=== PATIENT | male | born 1985 | race Caucasian/White ===

== ENCOUNTER 2020-02-24 17:45 | Observation (INO) ==
[2020-02-24 18:20] LABS: Mean Corpuscular HGB Conc 32.5 g/dL (31.6-35.5); Mean Corpuscular Hemoglobin 30.5 pg (28.0-33.3)
[2020-02-24 18:22] LABS: Hematocrit 45.9 % (37.5-50.1); Hemoglobin 14.9 g/dL (12.9-16.9); Immature Platelets 3.8 % (1.1-6.1); Mean Corpuscular Volume 94.1 fL (83.0-100.0); Red Blood Count 4.88 M/mcL (4.19-5.50); Red Cell Distribution Width 12.6 % (11.5-14.5); White Blood Count 5.4 K/mcL (4.3-11.1)
[2020-02-24 18:39] LABS: BUN/Creatinine Ratio 9 (6-26); Blood Urea Nitrogen 10 mg/dL (6-20); Calcium 9.3 mg/dL (8.6-10.3); Carbon Dioxide 28 mEq/L (23-29); Chloride 103 mEq/L (98-107); Glucose 119 mg/dL (70-105); Osmolality,Calculated 286 (280-300); Potassium 3.9 mEq/L (3.5-5.1); Sodium 138 mEq/L (136-145); eGFR For African Americans > 60 (> 60); eGFR For Non-African Americans > 60 (> 60)
[2020-02-24] MEDS: 0.9 % Sodium Chloride 1,000 ML IVC SCH ×2 (19:02→20:10)
[2020-02-24 20:16] LABS: Bilirubin,Urine Negative (Negative); Blood,Urine Negative (Negative); Clarity,Urine Clear (Clear); Color,Urine Light-Yellow (Yellow); Glucose,Urine (UA) Normal (Normal); Ketones,Urine Negative (Negative); Leukocyte Esterase,Urine Negative (Negative); Mucus,Urine Few per lpf (None-Few); Nitrite,Urine Negative (Negative); PH,Urine 6.5 pH Units (5.0-8.0); Protein,Urine 30 mg/dL (Neg-Trace); RBC,Urine 0-3 per hpf (0-3); Specific Gravity,Urine 1.016 (1.010-1.025); Squamous Epithelial Cell,Urine Few per hpf (None-Few); Urobilinogen,Urine Normal (Normal); WBC,Urine 0-3 per hpf (0-3)
[2020-02-25] MEDS ORDERED: *HR* Enoxaparin 150 MG/ML SYRINGE SQ STA (03:18)
[2020-02-25] MEDS: 0.9 % Sodium Chloride 1,000 ML IVC SCH (03:58)
[2020-02-25] MEDS ORDERED: 0.9 % Sodium Chloride 1,000 ML IVC ONE (04:00)
[2020-02-25] MEDS ORDERED: Naloxone 0.4 MG/ML INJ IVP PRN (04:52)
[2020-02-25] MEDS ORDERED: Ondansetron 4 MG/2 ML VIAL IVP PRN (04:52)
[2020-02-25] MEDS ORDERED: Ringers Solution, Lactated 1,000 ML IVC SCH (05:00)
[2020-02-25] MEDS ORDERED: Acetaminophen 325 MG TABLET PO PRN (05:35)
[2020-02-25] MEDS: Benzonatate 100 MG CAPSULE PO PRN ×2 (05:51→14:51)
[2020-02-25 08:34] LABS: Basophils % 0.3 %; Eosinophils # 0.1 K/mcL (0.0-0.6); Eosinophils % 1.7 %; Hematocrit 41.6 % (37.5-50.1); Hemoglobin 13.4 g/dL (12.9-16.9); Immature Granulocytes % 0.3 % (0-4); Lymphocytes # 2.7 K/mcL (0.6-4.6); Lymphocytes % 35.4 %; Mean Corpuscular HGB Conc 32.2 g/dL (31.6-35.5); Mean Corpuscular Hemoglobin 30.2 pg (28.0-33.3); Mean Corpuscular Volume 93.9 fL (83.0-100.0); Monocytes % 12.8 %; Neutrophils # 3.7 K/mcL (1.6-8.9); Platelet Count 118 K/mcL (140-400); Red Blood Count 4.43 M/mcL (4.19-5.50); Red Cell Distribution Width 12.9 % (11.5-14.5); Segmented Neutrophils % 49.5 %; White Blood Count 7.6 K/mcL (4.3-11.1)
[2020-02-25 08:43] LABS: Fibrinogen 277 mg/dL (169-393); INR 1.3; Prothrombin Time 14.5 Seconds (9.4-12.1)
[2020-02-25 08:44] LABS: D-Dimer 669 ng/mLFEU (0-500)
[2020-02-25 09:09] LABS: Alanine Aminotransferase 53 Units/L (7-52); Albumin 3.7 g/dL (3.5-5.7); Albumin/Globulin Ratio 1.3 (1.1-2.2); Alkaline Phosphatase 58 Units/L (34-104); Aspartate Amino Transferase 69 Units/L (13-39); BUN/Creatinine Ratio 9 (6-26); Bilirubin,Total 1.6 mg/dL (0.3-1.0); Blood Urea Nitrogen 8 mg/dL (6-20); Calcium 8.4 mg/dL (8.6-10.3); Carbon Dioxide 24 mEq/L (23-29); Chloride 105 mEq/L (98-107); Globulin 2.8 g/dL (2.4-3.5); Glucose 104 mg/dL (70-105); Lactate Dehydrogenase 210 Units/L (140-271); Magnesium 1.6 mg/dL (1.6-2.6); Osmolality,Calculated 283 (280-300); Potassium 3.5 mEq/L (3.5-5.1); Sodium 137 mEq/L (136-145); Total Protein 6.5 g/dL (6.4-8.9); eGFR For African Americans > 60 (> 60); eGFR For Non-African Americans > 60 (> 60)
[2020-02-25] MEDS: GuaiFENesin/Dextromethorphan TABLET PO SCH ×2 (09:21→19:46)
[2020-02-25 11:51] LABS: C-Reactive Protein 44 mg/L (Less than 10)
[2020-02-25] MEDS: dexAMETHasone 4 MG TABLET PO SCH (18:28)
[2020-02-25] MEDS: *HR* Enoxaparin 150 MG/ML SYRINGE SQ SCH (19:46)
[2020-02-25] MEDS ORDERED: traZODone 50 MG TABLET PO SCH (21:00)
[2020-02-26 02:15] VITALS: BP 113/72
[2020-02-26 06:04] LABS: Lactate Dehydrogenase 210 Units/L (140-271)
[2020-02-26 06:10] LABS: D-Dimer 405 ng/mLFEU (0-500); Fibrinogen 430 mg/dL (169-393)
[2020-02-26] MEDS: *HR* Enoxaparin 150 MG/ML SYRINGE SQ SCH (08:10)
[2020-02-26] MEDS: dexAMETHasone 4 MG TABLET PO SCH (08:10)
[2020-02-26] MEDS: GuaiFENesin/Dextromethorphan TABLET PO SCH (08:10)
[2020-02-26 08:14] LABS: Mean Platelet Volume 11.4 fL (9.4-12.4)
[2020-02-26 08:16] LABS: Hematocrit 45.1 % (37.5-50.1); Hemoglobin 14.8 g/dL (12.9-16.9); Immature Platelets 5.4 % (1.1-6.1); Mean Corpuscular HGB Conc 32.8 g/dL (31.6-35.5); Mean Corpuscular Hemoglobin 30.5 pg (28.0-33.3); Mean Corpuscular Volume 92.8 fL (83.0-100.0); Red Blood Count 4.86 M/mcL (4.19-5.50); White Blood Count 7.5 K/mcL (4.3-11.1)
[2020-02-26 10:41] LABS: Alanine Aminotransferase 53 Units/L (7-52); Albumin/Globulin Ratio 1.1 (1.1-2.2); Alkaline Phosphatase 66 Units/L (34-104); Aspartate Amino Transferase 60 Units/L (13-39); BUN/Creatinine Ratio 10 (6-26); Bilirubin,Direct 0.5 mg/dL (0.0-0.2); Bilirubin,Indirect 1.1 mg/dL (0.0-1.0); Bilirubin,Total 1.6 mg/dL (0.3-1.0); Blood Urea Nitrogen 9 mg/dL (6-20); C-Reactive Protein 73 mg/L (Less than 10); Carbon Dioxide 24 mEq/L (23-29); Chloride 101 mEq/L (98-107); Globulin 3.5 g/dL (2.4-3.5); Glucose 133 mg/dL (70-105); Osmolality,Calculated 283 (280-300); Potassium 4.5 mEq/L (3.5-5.1); Sodium 136 mEq/L (136-145); Total Protein 7.5 g/dL (6.4-8.9); eGFR For African Americans > 60 (> 60); eGFR For Non-African Americans > 60 (> 60)
== END 2020-02-26 11:54 | disposition home or self-care (01) ==
LOC: EMEROOARM 17:45 → 2NENU 17:45 → SUATTDRO 02-25 04:28 → 2NENU 02-25 04:47
PROVIDERS: ADMIT Internal Medicine; ATTEND Internal Medicine

== ENCOUNTER 2020-03-01 03:18 | Inpatient (IN) ==
[2020-03-01 03:45] LABS: Basophils % 0.2 %; Hemoglobin 14.2 g/dL (12.9-16.9); Immature Granulocytes % 0.8 % (0-4); Lymphocytes # 2.2 K/mcL (0.6-4.6); Lymphocytes % 26.2 %; Mean Corpuscular Hemoglobin 30.3 pg (28.0-33.3); Mean Corpuscular Volume 91.9 fL (83.0-100.0); Mean Platelet Volume 10.7 fL (9.4-12.4); Monocytes # 1.1 K/mcL (0.0-1.3); Monocytes % 13.1 %; Platelet Count 146 K/mcL (140-400); Red Blood Count 4.68 M/mcL (4.19-5.50); Red Cell Distribution Width 12.9 % (11.5-14.5); Segmented Neutrophils % 59.7 %; White Blood Count 8.3 K/mcL (4.3-11.1)
[2020-03-01 04:07] LABS: Alanine Aminotransferase 63 Units/L (7-52); Albumin 3.7 g/dL (3.5-5.7); Albumin/Globulin Ratio 1.1 (1.1-2.2); Alkaline Phosphatase 56 Units/L (34-104); Aspartate Amino Transferase 85 Units/L (13-39); BUN/Creatinine Ratio 11 (6-26); Bilirubin,Total 1.3 mg/dL (0.3-1.0); Blood Urea Nitrogen 12 mg/dL (6-20); Calcium 8.2 mg/dL (8.6-10.3); Carbon Dioxide 26 mEq/L (23-29); Chloride 98 mEq/L (98-107); Globulin 3.5 g/dL (2.4-3.5); Glucose 112 mg/dL (70-105); Osmolality,Calculated 279 (280-300); Potassium 3.6 mEq/L (3.5-5.1); Sodium 134 mEq/L (136-145); Total Protein 7.2 g/dL (6.4-8.9); eGFR For African Americans > 60 (> 60); eGFR For Non-African Americans > 60 (> 60)
[2020-03-01 04:20] LABS: Platelet Estimate Normal (Normal); Reactive Lymphocytes Present (Not Present)
[2020-03-01] MEDS ORDERED: Dexamethasone 4 MG/ML VIAL PO ONE (04:22)
[2020-03-01] MEDS ORDERED: 0.9 % Sodium Chloride 1,000 ML IVC ONE (04:23)
[2020-03-01] MEDS ORDERED: Ipratropium 1 PUFF INHALER IH ONE (04:23)
[2020-03-01 04:41] LABS: Troponin I < 0.03 ng/mL (< 0.04)
[2020-03-01] MEDS ORDERED: Naloxone 0.4 MG/ML INJ IVP PRN (07:26)
[2020-03-01] MEDS ORDERED: Ondansetron 4 MG/2 ML VIAL IVP PRN (07:26)
[2020-03-01] MEDS ORDERED: Acetaminophen 325 MG TABLET PO PRN (07:32)
[2020-03-01 08:18] LABS: Lactate Dehydrogenase 553 Units/L (140-271)
[2020-03-01 08:35] LABS: Ferritin 1069 ng/mL (20-250)
[2020-03-01] MEDS ORDERED: levoFLOXacin 750 MG/150 ML 750 MG/150 ML BAG IVPB SCH (09:00)
[2020-03-01 09:34] LABS: Fibrinogen 598 mg/dL (169-393)
[2020-03-01 09:53] LABS: D-Dimer 463 ng/mLFEU (0-500)
[2020-03-01 11:36] LABS: ABG Base Excess 1 mEq/L (-2 to 3); ABG HCO3 24 mEq/L (21-27); ABG Oxygen Saturation 95 % (95-98); ABG PCO2 33 mmHg (35-45); ABG PH 7.46 pH Units (7.32-7.45); ABG PO2 71 mmHg (85-104); ABG TCO2 25 mEq/L (20-26)
[2020-03-01] MEDS ORDERED: Dexamethasone 4 MG/ML VIAL IVP SCH (21:00)
[2020-03-01 21:22] LABS: Bilirubin,Urine Negative (Negative); Blood,Urine Negative (Negative); Clarity,Urine Clear (Clear); Color,Urine Yellow (Yellow); Glucose,Urine (UA) Normal (Normal); Ketones,Urine Negative (Negative); Leukocyte Esterase,Urine Negative (Negative); Nitrite,Urine Negative (Negative); PH,Urine 6.5 pH Units (5.0-8.0); Protein,Urine Trace mg/dL (Neg-Trace); Specific Gravity,Urine 1.029 (1.010-1.025); Urobilinogen,Urine >=8.0 mg/dL (Normal)
[2020-03-02 04:51] LABS: Basophils % 0.2 %; Hematocrit 43.3 % (37.5-50.1); Hemoglobin 14.5 g/dL (12.9-16.9); INR 1.2; Immature Granulocytes % 0.8 % (0-4); Lymphocytes # 1.7 K/mcL (0.6-4.6); Lymphocytes % 16.5 %; Mean Corpuscular HGB Conc 33.5 g/dL (31.6-35.5); Mean Corpuscular Hemoglobin 31.4 pg (28.0-33.3); Mean Corpuscular Volume 93.7 fL (83.0-100.0); Monocytes # 1.2 K/mcL (0.0-1.3); Monocytes % 11.2 %; Neutrophils # 7.4 K/mcL (1.6-8.9); Platelet Count 142 K/mcL (140-400); Prothrombin Time 13.4 Seconds (9.4-12.1); Red Blood Count 4.62 M/mcL (4.19-5.50); Red Cell Distribution Width 13.2 % (11.5-14.5); Segmented Neutrophils % 71.3 %; White Blood Count 10.4 K/mcL (4.3-11.1)
[2020-03-02 05:08] LABS: Alanine Aminotransferase 57 Units/L (7-52); Albumin 3.5 g/dL (3.5-5.7); Alkaline Phosphatase 50 Units/L (34-104); Aspartate Amino Transferase 59 Units/L (13-39); BUN/Creatinine Ratio 18 (6-26); Bilirubin,Total 0.8 mg/dL (0.3-1.0); Blood Urea Nitrogen 14 mg/dL (6-20); Calcium 8.6 mg/dL (8.6-10.3); Carbon Dioxide 25 mEq/L (23-29); Chloride 102 mEq/L (98-107); Globulin 3.6 g/dL (2.4-3.5); Glucose 144 mg/dL (70-105); Magnesium 2.3 mg/dL (1.6-2.6); Osmolality,Calculated 287 (280-300); Phosphorous 4.8 mg/dL (2.7-4.5); Potassium 4.1 mEq/L (3.5-5.1); Sodium 137 mEq/L (136-145); Total Protein 7.1 g/dL (6.4-8.9); eGFR For African Americans > 60 (> 60); eGFR For Non-African Americans > 60 (> 60)
[2020-03-02] MEDS: *HR* Enoxaparin 40 MG/0.4 ML SYRINGE SQ SCH (06:22)
[2020-03-02] MEDS: Azithromycin 500 MG in 0.9 % Sodium Chloride 250 ML IVPB SCH (09:00)
[2020-03-02] MEDS: cefTRIAXone 2,000 MG in Water for inj. (sterile) 20 ML IVP SCH (09:00)
[2020-03-02] MEDS: Dexamethasone 4 MG/ML VIAL IVP SCH (09:01)
[2020-03-02] MEDS ORDERED: 0.9 % Sodium Chloride 250 ML IVC SCH (10:45)
[2020-03-02] MEDS ORDERED: 0.9 % Sodium Chloride 250 ML ONE (13:07)
[2020-03-02] MEDS ORDERED: Furosemide 20 MG/2 ML VIAL IVP ONE (15:00)
[2020-03-02] MEDS ORDERED: Benzonatate 100 MG CAPSULE PO PRN (18:13)
[2020-03-02] MEDS ORDERED: Melatonin 3 MG TABLET PO ONE (23:45)
[2020-03-03] MEDS ORDERED: Water for inj. (sterile) 20 ML IV ONE (06:58)
[2020-03-03] MEDS: Azithromycin 500 MG in 0.9 % Sodium Chloride 250 ML IVPB SCH (07:03)
[2020-03-03] MEDS: *HR* Enoxaparin 40 MG/0.4 ML SYRINGE SQ SCH (07:06)
[2020-03-03] MEDS: cefTRIAXone 2,000 MG in Water for inj. (sterile) 20 ML IVP SCH (07:07)
[2020-03-03] MEDS: Dexamethasone 4 MG/ML VIAL IVP SCH (07:08)
[2020-03-03] MEDS: GuaiFENesin/Codeine Oral Soln 5 ML UDC PO PRN ×2 (08:06→20:20)
[2020-03-03 09:47] LABS: Hematocrit 42.6 % (37.5-50.1); Hemoglobin 14.2 g/dL (12.9-16.9); Mean Corpuscular HGB Conc 33.3 g/dL (31.6-35.5); Mean Corpuscular Hemoglobin 31.6 pg (28.0-33.3); Mean Corpuscular Volume 94.9 fL (83.0-100.0); Platelet Count 165 K/mcL (140-400); Red Blood Count 4.49 M/mcL (4.19-5.50); Red Cell Distribution Width 13.2 % (11.5-14.5); White Blood Count 12.1 K/mcL (4.3-11.1)
[2020-03-03 10:04] LABS: BUN/Creatinine Ratio 23 (6-26); Blood Urea Nitrogen 16 mg/dL (6-20); Calcium 8.7 mg/dL (8.6-10.3); Carbon Dioxide 25 mEq/L (23-29); Chloride 105 mEq/L (98-107); Glucose 125 mg/dL (70-105); Osmolality,Calculated 291 (280-300); Sodium 139 mEq/L (136-145); eGFR For African Americans > 60 (> 60); eGFR For Non-African Americans > 60 (> 60)
[2020-03-03 13:39] LABS: Alanine Aminotransferase 62 Units/L (7-52); Albumin 3.4 g/dL (3.5-5.7); Albumin/Globulin Ratio 0.9 (1.1-2.2); Alkaline Phosphatase 54 Units/L (34-104); Aspartate Amino Transferase 65 Units/L (13-39); Bilirubin,Direct 0.2 mg/dL (0.0-0.2); Bilirubin,Indirect 0.5 mg/dL (0.0-1.0); Bilirubin,Total 0.7 mg/dL (0.3-1.0); Globulin 3.7 g/dL (2.4-3.5); Total Protein 7.1 g/dL (6.4-8.9)
[2020-03-03] MEDS ORDERED: Remdesivir 200 MG in 0.9 % Sodium Chloride 210 ML IVPB ONE (17:00)
[2020-03-03] MEDS: Furosemide 20 MG/2 ML VIAL IVP SCH (20:08)
[2020-03-04] MEDS: *HR* Enoxaparin 40 MG/0.4 ML SYRINGE SQ SCH (05:14)
[2020-03-04 06:10] LABS: Hematocrit 45.6 % (37.5-50.1); Hemoglobin 14.7 g/dL (12.9-16.9); Mean Corpuscular HGB Conc 32.2 g/dL (31.6-35.5); Mean Corpuscular Hemoglobin 30.2 pg (28.0-33.3); Mean Corpuscular Volume 93.8 fL (83.0-100.0); Mean Platelet Volume 10.7 fL (9.4-12.4); Platelet Count 186 K/mcL (140-400); Red Blood Count 4.86 M/mcL (4.19-5.50); Red Cell Distribution Width 13.2 % (11.5-14.5); White Blood Count 11.9 K/mcL (4.3-11.1)
[2020-03-04 06:28] LABS: BUN/Creatinine Ratio 21 (6-26); Blood Urea Nitrogen 17 mg/dL (6-20); Calcium 8.9 mg/dL (8.6-10.3); Carbon Dioxide 30 mEq/L (23-29); Chloride 102 mEq/L (98-107); Glucose 104 mg/dL (70-105); Osmolality,Calculated 292 (280-300); Sodium 140 mEq/L (136-145); eGFR For African Americans > 60 (> 60); eGFR For Non-African Americans > 60 (> 60)
[2020-03-04] MEDS: cefTRIAXone 2,000 MG in Water for inj. (sterile) 20 ML IVP SCH (08:12)
[2020-03-04] MEDS: Dexamethasone 4 MG/ML VIAL IVP SCH (08:13)
[2020-03-04] MEDS: Furosemide 20 MG/2 ML VIAL IVP SCH (08:13)
[2020-03-04] MEDS: Azithromycin 500 MG in 0.9 % Sodium Chloride 250 ML IVPB SCH (08:14)
[2020-03-04 11:49] LABS: INR 1.2; Prothrombin Time 13.7 Seconds (9.4-12.1)
[2020-03-04 12:53] LABS: Albumin 3.7 g/dL (3.5-5.7); Albumin/Globulin Ratio 0.9 (1.1-2.2); Bilirubin,Direct 0.3 mg/dL (0.0-0.2); Bilirubin,Indirect 0.4 mg/dL (0.0-1.0); Bilirubin,Total 0.7 mg/dL (0.3-1.0); Globulin 4.1 g/dL (2.4-3.5); Total Protein 7.8 g/dL (6.4-8.9)
[2020-03-04] MEDS: Remdesivir 100 MG in 0.9 % Sodium Chloride 230 ML IVPB SCH (18:02)
[2020-03-04] MEDS ORDERED: Furosemide 20 MG/2 ML VIAL IVP ONE (21:00)
[2020-03-04] MEDS ORDERED: 0.9 % Sodium Chloride 250 ML ONE (22:17)
[2020-03-05] MEDS: GuaiFENesin/Codeine Oral Soln 5 ML UDC PO PRN ×4 (01:17→23:57)
[2020-03-05] MEDS: Furosemide 20 MG/2 ML VIAL IVP SCH ×3 (03:56→22:07)
[2020-03-05] MEDS: *HR* Enoxaparin 40 MG/0.4 ML SYRINGE SQ SCH (05:55)
[2020-03-05] MEDS: Azithromycin 500 MG in 0.9 % Sodium Chloride 250 ML IVPB SCH (08:34)
[2020-03-05] MEDS: cefTRIAXone 2,000 MG in Water for inj. (sterile) 20 ML IVP SCH (08:34)
[2020-03-05] MEDS: Dexamethasone 4 MG/ML VIAL IVP SCH (08:35)
[2020-03-05 12:10] LABS: Hematocrit 46.7 % (37.5-50.1); Hemoglobin 15.5 g/dL (12.9-16.9); Mean Corpuscular HGB Conc 33.2 g/dL (31.6-35.5); Mean Corpuscular Hemoglobin 30.8 pg (28.0-33.3); Mean Corpuscular Volume 92.7 fL (83.0-100.0); Mean Platelet Volume 10.7 fL (9.4-12.4); Platelet Count 212 K/mcL (140-400); Red Blood Count 5.04 M/mcL (4.19-5.50); White Blood Count 11.9 K/mcL (4.3-11.1)
[2020-03-05 12:16] LABS: INR 1.2; Prothrombin Time 13.7 Seconds (9.4-12.1)
[2020-03-05 12:32] LABS: Alanine Aminotransferase 113 Units/L (7-52); Albumin 3.7 g/dL (3.5-5.7); Albumin/Globulin Ratio 0.9 (1.1-2.2); Alkaline Phosphatase 60 Units/L (34-104); Aspartate Amino Transferase 87 Units/L (13-39); BUN/Creatinine Ratio 25 (6-26); Bilirubin,Total 0.8 mg/dL (0.3-1.0); Blood Urea Nitrogen 21 mg/dL (6-20); Carbon Dioxide 26 mEq/L (23-29); Chloride 100 mEq/L (98-107); Globulin 4.2 g/dL (2.4-3.5); Glucose 130 mg/dL (70-105); Osmolality,Calculated 285 (280-300); Potassium 4.1 mEq/L (3.5-5.1); Sodium 135 mEq/L (136-145); Total Protein 7.9 g/dL (6.4-8.9); eGFR For African Americans > 60 (> 60); eGFR For Non-African Americans > 60 (> 60)
[2020-03-05] MEDS ORDERED: 0.9 % Sodium Chloride 250 ML ONE (12:55)
[2020-03-05] MEDS ORDERED: Furosemide 20 MG/2 ML VIAL IVP ONE (20:17)
[2020-03-05] MEDS: Remdesivir 100 MG in 0.9 % Sodium Chloride 230 ML IVPB SCH (20:42)
[2020-03-06] MEDS: *HR* Enoxaparin 40 MG/0.4 ML SYRINGE SQ SCH (06:44)
[2020-03-06] MEDS: GuaiFENesin/Codeine Oral Soln 5 ML UDC PO PRN ×2 (06:44→20:33)
[2020-03-06 07:38] LABS: Hematocrit 45.7 % (37.5-50.1); Hemoglobin 15.1 g/dL (12.9-16.9); Mean Corpuscular Hemoglobin 30.4 pg (28.0-33.3); Mean Platelet Volume 11.1 fL (9.4-12.4); Platelet Count 210 K/mcL (140-400); Red Blood Count 4.97 M/mcL (4.19-5.50); Red Cell Distribution Width 12.9 % (11.5-14.5)
[2020-03-06 07:42] LABS: INR 1.2
[2020-03-06 07:56] LABS: Alanine Aminotransferase 96 Units/L (7-52); Albumin 3.5 g/dL (3.5-5.7); Albumin/Globulin Ratio 0.9 (1.1-2.2); Alkaline Phosphatase 56 Units/L (34-104); Aspartate Amino Transferase 68 Units/L (13-39); BUN/Creatinine Ratio 28 (6-26); Bilirubin,Total 0.9 mg/dL (0.3-1.0); Blood Urea Nitrogen 21 mg/dL (6-20); Calcium 9.1 mg/dL (8.6-10.3); Carbon Dioxide 26 mEq/L (23-29); Chloride 100 mEq/L (98-107); Glucose 93 mg/dL (70-105); Osmolality,Calculated 285 (280-300); Potassium 3.9 mEq/L (3.5-5.1); Sodium 136 mEq/L (136-145); Total Protein 7.5 g/dL (6.4-8.9); eGFR For African Americans > 60 (> 60); eGFR For Non-African Americans > 60 (> 60)
[2020-03-06] MEDS: Azithromycin 500 MG in 0.9 % Sodium Chloride 250 ML IVPB SCH (09:00)
[2020-03-06] MEDS: Dexamethasone 4 MG/ML VIAL IVP SCH (09:52)
[2020-03-06] MEDS: Furosemide 20 MG/2 ML VIAL IVP SCH ×2 (09:53→20:33)
[2020-03-06] MEDS: cefTRIAXone 2,000 MG in Water for inj. (sterile) 20 ML IVP SCH (10:03)
[2020-03-06] MEDS: Remdesivir 100 MG in 0.9 % Sodium Chloride 230 ML IVPB SCH (17:15)
[2020-03-06 21:50] LABS: ABG Base Excess 4 mEq/L (-2 to 3); ABG HCO3 26 mEq/L (21-27); ABG Oxygen Saturation 95 % (95-98); ABG PCO2 33 mmHg (35-45); ABG PH 7.51 pH Units (7.32-7.45); ABG PO2 69 mmHg (85-104); ABG TCO2 27 mEq/L (20-26)
[2020-03-07] MEDS: GuaiFENesin/Codeine Oral Soln 5 ML UDC PO PRN ×3 (06:26→19:44)
[2020-03-07] MEDS: *HR* Enoxaparin 40 MG/0.4 ML SYRINGE SQ SCH (06:27)
[2020-03-07] MEDS: Dexamethasone 4 MG/ML VIAL IVP SCH (07:59)
[2020-03-07] MEDS: Furosemide 20 MG/2 ML VIAL IVP SCH ×2 (07:59→19:44)
[2020-03-07 10:04] LABS: Hematocrit 47.1 % (37.5-50.1); Hemoglobin 15.9 g/dL (12.9-16.9); Mean Corpuscular HGB Conc 33.8 g/dL (31.6-35.5); Mean Corpuscular Hemoglobin 30.3 pg (28.0-33.3); Mean Corpuscular Volume 89.9 fL (83.0-100.0); Mean Platelet Volume 10.6 fL (9.4-12.4); Platelet Count 243 K/mcL (140-400); Red Blood Count 5.24 M/mcL (4.19-5.50); Red Cell Distribution Width 12.7 % (11.5-14.5); White Blood Count 12.2 K/mcL (4.3-11.1)
[2020-03-07 10:06] LABS: INR 1.2
[2020-03-07 10:19] LABS: Alanine Aminotransferase 97 Units/L (7-52); Albumin 3.8 g/dL (3.5-5.7); Albumin/Globulin Ratio 0.8 (1.1-2.2); Alkaline Phosphatase 63 Units/L (34-104); Aspartate Amino Transferase 62 Units/L (13-39); BUN/Creatinine Ratio 26 (6-26); Bilirubin,Total 1.1 mg/dL (0.3-1.0); Blood Urea Nitrogen 22 mg/dL (6-20); Calcium 9.1 mg/dL (8.6-10.3); Carbon Dioxide 28 mEq/L (23-29); Chloride 96 mEq/L (98-107); Globulin 4.5 g/dL (2.4-3.5); Glucose 129 mg/dL (70-105); Osmolality,Calculated 281 (280-300); Potassium 3.8 mEq/L (3.5-5.1); Sodium 133 mEq/L (136-145); Total Protein 8.3 g/dL (6.4-8.9); eGFR For African Americans > 60 (> 60); eGFR For Non-African Americans > 60 (> 60)
[2020-03-07] MEDS: Remdesivir 100 MG in 0.9 % Sodium Chloride 230 ML IVPB SCH (17:18)
[2020-03-07] MEDS ORDERED: Benzonatate 100 MG CAPSULE PO PRN (21:54)
[2020-03-07] MEDS ORDERED: Chloraseptic Spray 177 ML BOTTLE MM PRN (21:56)
[2020-03-08] MEDS: *HR* Enoxaparin 40 MG/0.4 ML SYRINGE SQ SCH (05:33)
[2020-03-08] MEDS: Benzonatate 100 MG CAPSULE PO SCH ×3 (09:20→19:34)
[2020-03-08] MEDS: Dexamethasone 4 MG/ML VIAL IVP SCH (09:20)
[2020-03-08] MEDS: Furosemide 20 MG/2 ML VIAL IVP SCH ×2 (09:21→19:34)
[2020-03-08] MEDS: GuaiFENesin/Codeine Oral Soln 5 ML UDC PO SCH ×3 (12:10→23:15)
[2020-03-08 13:08] LABS: Hematocrit 48.1 % (37.5-50.1); Hemoglobin 16.5 g/dL (12.9-16.9); INR 1.3; Mean Corpuscular HGB Conc 34.3 g/dL (31.6-35.5); Mean Corpuscular Hemoglobin 31.2 pg (28.0-33.3); Mean Corpuscular Volume 90.9 fL (83.0-100.0); Mean Platelet Volume 10.8 fL (9.4-12.4); Platelet Count 249 K/mcL (140-400); Prothrombin Time 15.3 Seconds (9.4-12.1); Red Blood Count 5.29 M/mcL (4.19-5.50); Red Cell Distribution Width 12.5 % (11.5-14.5); White Blood Count 12.5 K/mcL (4.3-11.1)
[2020-03-08 13:10] LABS: Basophils % 0.2 %; Eosinophils # 0.1 K/mcL (0.0-0.6); Eosinophils % 1.1 %; Hematocrit 48.8 % (37.5-50.1); Hemoglobin 16.7 g/dL (12.9-16.9); Immature Granulocytes % 0.9 % (0-4); Lymphocytes # 1.4 K/mcL (0.6-4.6); Lymphocytes % 10.6 %; Mean Corpuscular HGB Conc 34.2 g/dL (31.6-35.5); Mean Corpuscular Hemoglobin 31.2 pg (28.0-33.3); Mean Corpuscular Volume 91.2 fL (83.0-100.0); Mean Platelet Volume 10.7 fL (9.4-12.4); Monocytes # 0.4 K/mcL (0.0-1.3); Monocytes % 3.2 %; Neutrophils # 11.2 K/mcL (1.6-8.9); Platelet Count 252 K/mcL (140-400); Red Blood Count 5.35 M/mcL (4.19-5.50); Red Cell Distribution Width 12.6 % (11.5-14.5); White Blood Count 13.3 K/mcL (4.3-11.1)
[2020-03-08 13:36] LABS: Alanine Aminotransferase 94 Units/L (7-52); Albumin 3.7 g/dL (3.5-5.7); Albumin/Globulin Ratio 0.8 (1.1-2.2); Alkaline Phosphatase 71 Units/L (34-104); Aspartate Amino Transferase 62 Units/L (13-39); BUN/Creatinine Ratio 27 (6-26); Bilirubin,Total 1.3 mg/dL (0.3-1.0); Blood Urea Nitrogen 24 mg/dL (6-20); Calcium 9.1 mg/dL (8.6-10.3); Carbon Dioxide 28 mEq/L (23-29); Chloride 94 mEq/L (98-107); Globulin 4.7 g/dL (2.4-3.5); Glucose 125 mg/dL (70-105); Osmolality,Calculated 280 (280-300); Potassium 3.8 mEq/L (3.5-5.1); Sodium 132 mEq/L (136-145); Total Protein 8.4 g/dL (6.4-8.9); eGFR For African Americans > 60 (> 60); eGFR For Non-African Americans > 60 (> 60)
[2020-03-08] MEDS ORDERED: traZODone 50 MG TABLET PO PRN (20:57)
[2020-03-08] MEDS: PARoxetine 20 MG TABLET PO SCH (23:14)
[2020-03-09 02:22] LABS: Hematocrit 46.5 % (37.5-50.1); Hemoglobin 15.5 g/dL (12.9-16.9); Mean Corpuscular HGB Conc 33.3 g/dL (31.6-35.5); Mean Corpuscular Hemoglobin 29.8 pg (28.0-33.3); Mean Corpuscular Volume 89.3 fL (83.0-100.0); Platelet Count 230 K/mcL (140-400); Red Blood Count 5.21 M/mcL (4.19-5.50); Red Cell Distribution Width 12.4 % (11.5-14.5); White Blood Count 12.3 K/mcL (4.3-11.1)
[2020-03-09 02:29] LABS: INR 1.3; Prothrombin Time 14.4 Seconds (9.4-12.1)
[2020-03-09 02:39] LABS: Alanine Aminotransferase 88 Units/L (7-52); Albumin 3.7 g/dL (3.5-5.7); Albumin/Globulin Ratio 0.8 (1.1-2.2); Alkaline Phosphatase 70 Units/L (34-104); Aspartate Amino Transferase 54 Units/L (13-39); BUN/Creatinine Ratio 36 (6-26); Blood Urea Nitrogen 29 mg/dL (6-20); Carbon Dioxide 28 mEq/L (23-29); Chloride 94 mEq/L (98-107); Globulin 4.6 g/dL (2.4-3.5); Glucose 126 mg/dL (70-105); Osmolality,Calculated 281 (280-300); Potassium 3.5 mEq/L (3.5-5.1); Sodium 132 mEq/L (136-145); Total Protein 8.3 g/dL (6.4-8.9); eGFR For African Americans > 60 (> 60); eGFR For Non-African Americans > 60 (> 60)
[2020-03-09] MEDS: *HR* Enoxaparin 40 MG/0.4 ML SYRINGE SQ SCH (05:07)
[2020-03-09] MEDS: GuaiFENesin/Codeine Oral Soln 5 ML UDC PO SCH ×3 (05:07→18:02)
[2020-03-09] MEDS: Furosemide 20 MG/2 ML VIAL IVP SCH ×2 (08:46→20:55)
[2020-03-09] MEDS: Dexamethasone 4 MG/ML VIAL IVP SCH (08:46)
[2020-03-09] MEDS: Benzonatate 100 MG CAPSULE PO SCH ×3 (08:47→20:55)
[2020-03-09] MEDS: PARoxetine 20 MG TABLET PO SCH (08:47)
[2020-03-10] MEDS: GuaiFENesin/Codeine Oral Soln 5 ML UDC PO SCH ×5 (00:20→23:44)
[2020-03-10 04:00] LABS: Hemoglobin 15.9 g/dL (12.9-16.9); Mean Corpuscular HGB Conc 33.8 g/dL (31.6-35.5); Mean Corpuscular Hemoglobin 29.9 pg (28.0-33.3); Mean Corpuscular Volume 88.3 fL (83.0-100.0); Mean Platelet Volume 10.8 fL (9.4-12.4); Platelet Count 250 K/mcL (140-400); Red Blood Count 5.32 M/mcL (4.19-5.50); Red Cell Distribution Width 12.2 % (11.5-14.5); White Blood Count 14.9 K/mcL (4.3-11.1)
[2020-03-10 04:07] LABS: INR 1.2; Prothrombin Time 13.6 Seconds (9.4-12.1)
[2020-03-10 04:22] LABS: Alanine Aminotransferase 98 Units/L (7-52); Albumin 3.6 g/dL (3.5-5.7); Albumin/Globulin Ratio 0.9 (1.1-2.2); Alkaline Phosphatase 71 Units/L (34-104); Aspartate Amino Transferase 56 Units/L (13-39); BUN/Creatinine Ratio 33 (6-26); Blood Urea Nitrogen 25 mg/dL (6-20); Carbon Dioxide 30 mEq/L (23-29); Chloride 93 mEq/L (98-107); Globulin 4.1 g/dL (2.4-3.5); Glucose 133 mg/dL (70-105); Osmolality,Calculated 280 (280-300); Potassium 3.3 mEq/L (3.5-5.1); Sodium 132 mEq/L (136-145); Total Protein 7.7 g/dL (6.4-8.9); eGFR For African Americans > 60 (> 60); eGFR For Non-African Americans > 60 (> 60)
[2020-03-10] MEDS: *HR* Enoxaparin 40 MG/0.4 ML SYRINGE SQ SCH (06:02)
[2020-03-10] MEDS: PARoxetine 20 MG TABLET PO SCH (09:46)
[2020-03-10] MEDS: Benzonatate 100 MG CAPSULE PO SCH ×3 (09:46→20:42)
[2020-03-10] MEDS: Dexamethasone 4 MG/ML VIAL IVP SCH (09:46)
[2020-03-10] MEDS: Furosemide 20 MG/2 ML VIAL IVP SCH (09:47)
[2020-03-10] MEDS: Furosemide 40 MG TABLET PO SCH (18:00)
[2020-03-11] MEDS: GuaiFENesin/Codeine Oral Soln 5 ML UDC PO SCH ×4 (05:36→23:10)
[2020-03-11] MEDS: *HR* Enoxaparin 40 MG/0.4 ML SYRINGE SQ SCH (05:36)
[2020-03-11 06:41] LABS: INR 1.1; Prothrombin Time 12.4 Seconds (9.4-12.1)
[2020-03-11] MEDS: PARoxetine 20 MG TABLET PO SCH (09:01)
[2020-03-11] MEDS: Furosemide 40 MG TABLET PO SCH ×2 (09:01→16:45)
[2020-03-11] MEDS: Benzonatate 100 MG CAPSULE PO SCH ×3 (09:01→19:56)
[2020-03-11] MEDS: Dexamethasone 4 MG/ML VIAL IVP SCH (09:02)
[2020-03-11] MEDS: polyethylene glycoL 3350 17 GM POWD.PACK PO SCH (16:45)
[2020-03-12] MEDS: *HR* Enoxaparin 40 MG/0.4 ML SYRINGE SQ SCH (05:08)
[2020-03-12] MEDS: GuaiFENesin/Codeine Oral Soln 5 ML UDC PO SCH ×4 (05:08→23:50)
[2020-03-12 06:40] LABS: Basophils % 0.2 %; Eosinophils % 0.3 %; Hematocrit 42.3 % (37.5-50.1); Hemoglobin 14.9 g/dL (12.9-16.9); Immature Granulocytes % 0.6 % (0-4); Lymphocytes % 16.9 %; Mean Corpuscular HGB Conc 35.2 g/dL (31.6-35.5); Mean Corpuscular Hemoglobin 31.5 pg (28.0-33.3); Mean Corpuscular Volume 89.4 fL (83.0-100.0); Mean Platelet Volume 10.3 fL (9.4-12.4); Monocytes # 0.9 K/mcL (0.0-1.3); Monocytes % 7.6 %; Neutrophils # 8.7 K/mcL (1.6-8.9); Platelet Count 219 K/mcL (140-400); Red Blood Count 4.73 M/mcL (4.19-5.50); Red Cell Distribution Width 12.3 % (11.5-14.5); Segmented Neutrophils % 74.4 %; White Blood Count 11.7 K/mcL (4.3-11.1)
[2020-03-12 07:00] LABS: BUN/Creatinine Ratio 40 (6-26); Blood Urea Nitrogen 27 mg/dL (6-20); Calcium 8.8 mg/dL (8.6-10.3); Carbon Dioxide 32 mEq/L (23-29); Chloride 95 mEq/L (98-107); Glucose 122 mg/dL (70-105); Osmolality,Calculated 282 (280-300); Potassium 3.6 mEq/L (3.5-5.1); Sodium 133 mEq/L (136-145); eGFR For African Americans > 60 (> 60); eGFR For Non-African Americans > 60 (> 60)
[2020-03-12] MEDS: Dexamethasone 4 MG/ML VIAL IVP SCH (07:49)
[2020-03-12] MEDS: polyethylene glycoL 3350 17 GM POWD.PACK PO SCH (07:50)
[2020-03-12] MEDS: PARoxetine 20 MG TABLET PO SCH (07:50)
[2020-03-12] MEDS: Benzonatate 100 MG CAPSULE PO SCH ×3 (07:50→21:06)
[2020-03-12] MEDS: Furosemide 40 MG TABLET PO SCH ×2 (07:50→18:15)
[2020-03-13] MEDS: GuaiFENesin/Codeine Oral Soln 5 ML UDC PO SCH (05:25)
[2020-03-13] MEDS: *HR* Enoxaparin 40 MG/0.4 ML SYRINGE SQ SCH (05:26)
[2020-03-13] MEDS: Dexamethasone 4 MG/ML VIAL IVP SCH (07:04)
[2020-03-13] MEDS: Benzonatate 100 MG CAPSULE PO SCH (07:05)
[2020-03-13] MEDS: Furosemide 40 MG TABLET PO SCH (07:06)
[2020-03-13] MEDS: PARoxetine 20 MG TABLET PO SCH (07:06)
[2020-03-13] MEDS: polyethylene glycoL 3350 17 GM POWD.PACK PO SCH (07:06)
[2020-03-13 08:24] VITALS: BP 123/75
== END 2020-03-13 13:21 | disposition home or self-care (01) | DRG 177 ==
LOC: EMEROOARM 03:18 → 2NENU 03:18 → SUATTDRO 03-03 14:05
PROVIDERS: ADMIT Internal Medicine; ATTEND Internal Medicine